=== PATIENT | female | born 1975 | race Caucasian/White ===

== ENCOUNTER → 2019-10-26 | Outpatient (CLI) | payer BC, OTHER | LOC: M.RAD 15:46 | DX: Z12.31 Encounter for screening mammogram for malignant neoplasm of breast (principal) ==

== ENCOUNTER 2020-11-05 23:31 | Emergency (ER) | payer BC, OTHER ==
[~2020-11-05] VITALS: Ht 165.1 cm; Wt 137.9 kg
[2020-11-05] MEDS ORDERED: LEVO-T100 MCG PO (23:43)
[2020-11-05] MEDS ORDERED: BIRTH CONTROL PILLS (23:44)
[2020-11-06 00:30] VITALS: BP 130/77
== END 2020-11-06 00:30 | disposition home or self-care (01) ==
LOC: M.ERS 23:31
DX: S61.213A Laceration without foreign body of left middle finger without damage to nail, initial encounter (principal); E03.9 Hypothyroidism, unspecified; Z98.890 Other specified postprocedural states; Z90.49 Acquired absence of other specified parts of digestive tract; Z88.2 Allergy status to sulfonamides; W45.8XXA Other foreign body or object entering through skin, initial encounter; Y93.G1 Activity, food preparation and clean up; Y92.89 Other specified places as the place of occurrence of the external cause; Y99.9 Unspecified external cause status